=== PATIENT | male | born 1955 | race Caucasian/White ===

== ENCOUNTER 2016-06-26 15:16 | Emergency (ER) | payer OTHER ==
--- NOTE | 2016-06-26 15:51 | DIAGNOSTIC IMAGING REPORT ---
PROCEDURE: XR CHEST 1 VIEW INDICATION: CHEST PAIN TECHNIQUE: Portable AP view 03:45 p.m. COMPARISON: None. FINDINGS: Lungs are clear. Heart and mediastinum are normal. Thorax is normal. IMPRESSION: 1. Negative chest.
--- NOTE | 2016-06-26 17:57 | DIAGNOSTIC IMAGING REPORT ---
PROCEDURE: CTA THORAX WITH CONTRAST INDICATION: Left-sided chest pain x 1 week and shortness of breath. TECHNIQUE: 124 ml of Isovue 370 was injected intravenously and axial images were obtained of the entire thorax with 3D sagittal and coronal MIP reconstructions. 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 No dissection or aneurysm. There is also a focal rounded areas calcific atherosclerosis of the proximal right subclavian artery also resulting high-grade stenosis. Coronary calcific atherosclerosis. There are no pulmonary emboli. Lungs are clear. There is bronchial wall thickening. No adenopathy or effusion. Normal heart size. No pericardial effusion. Hepatic steatosis. No suspicious osseous lesions. IMPRESSION: 1. No aortic dissection or aneurysm 2. 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 High-grade stenosis of the proximal right subclavian artery 4. Bronchitis 5. Hepatic steatosis 6. Results discussed with Dr. Mercado
--- NOTE | 2016-06-26 22:31 | ED CLINICAL REPORT ---
Clinical Report - Physicians/Mid Levels [facility] [address] [place] [address] 06/26/2016 15:18 Patient: KONSTANTIN COREA Time Seen: 15:40 Jun 26 2016. Arrived- By private vehicle. Historian- patient. HISTORY OF PRESENT ILLNESS Chief Complaint: CHEST PAIN. At its maximum, severity described as moderate. When seen in the E.D., severity described as moderate. Modifying factors. Not worsened by anything. Not relieved by anything. It is described as pressure and it is described as located in the left chest area and left shoulder and arm. This started about 1 weeks and is still present. Onset during light activity. The patient has had difficulty breathing and nausea. Similar symptoms previously: None. Recent medical care: The patient was seen recently at another facility in the office. REVIEW OF SYSTEMS No fever, chills, cough, pedal edema or calf pain. No fainting episodes, sore throat, abdominal pain, black stools or difficulty with urination. No skin rash, enlarged lymph nodes or joint pain. All systems otherwise negative, except as recorded above. PAST HISTORY Hypertension. ( liver disease,). Medications: Hctz 26 mg daily. Lisinopril 20 mg daily. Lctulose 10/15 45 ml tid. Tiamine 100 mg daily. Prcocet 10/325 q6h prn. Methadone 40 mg daily. Allergies: No Known Drug Allergy. SOCIAL HISTORY Heavy tobacco smoker- more than 2 packs per day. Regular alcohol use; consumes beer. No drug use. ADDITIONAL NOTES The nursing notes have been reviewed. PHYSICAL EXAM Vital Signs: 06/26/2016 15:25 BP: 138/91. Temp: 99.2 F. Appearance: Alert. No acute distress. Anxious. Eyes: Eyes normal inspection. ENT: Pharynx normal. Neck: Normal inspection. CVS: Normal heart rate and rhythm. Diminished right radial pulse and right and left femoral pulse. Absent left radial pulse. Heart sounds normal. No cardiac murmur. (Bruit , left chest over subclavian.). Respiratory: No respiratory distress. Breath sounds normal. Chest nontender. Abdomen: Soft and nontender. Back: Normal external inspection. No CVA tenderness. Skin: Skin warm. Normal skin color. No rash. Extremities: Extremities exhibit normal ROM. No lower extremity edema. Neuro: Oriented X 3. No motor deficit. No sensory deficit. Reflexes normal. LABS, X-RAYS, AND EKG EKG: Normal sinus rhythm. Normal P waves. Normal VINNIE. Normal QRS complex. Wide QRS- intraventricular conduction delay. Left axis deviation. Non-specific ST segment / T wave abnormalities. Prior EKG unavailable. The study has been interpreted contemporaneously. The study has been independently viewed by me. The EKG appears to be a good tracing. EKG #2: Normal sinus rhythm. Normal P waves. Normal VINNIE. Normal QRS complex. Left axis deviation. Non-specific ST segment / T wave abnormalities. EKG unchanged when compared with prior EKG. The study has been interpreted contemporaneously. The study has been independently viewed by me. The EKG appears to be a good tracing. Chest CT: Lungs normal. Mediastinum normal. (No dissection. Very severe ASVD aortic arch. Very focal, annular but greater than 80%. Right subclavian artery : High grade stenosis.). Chest CT performed with contrast. The study was interpreted by the radiologist and discussed with the radiologist. Laboratory Tests: UA-Culture if indicated: (NIURKA: 06/26/2016 15:55) ( MsgRcvd 06/26/2016 16:51) Final results Test Result Flag Units (Reference) URINE COLOR YELLOW URINE APPEARANCE CLEAR URINE GLUCOSE NEGATIVE (NEGATIVE) URINE BILIRUBIN NEGATIVE (NEGATIVE) URINE KETONE NEGATIVE (NEGATIVE) URINE SPECIFIC GRAVITY 1.025 (1.010-1.030) URINE PH 5.5 (5.0-8.0) URINE PROTEIN NEGATIVE (NEGATIVE) URINE UROBILINOGEN 0.2 EU/dL (0.2-1.0) URINE NITRITE NEGATIVE (NEGATIVE) URINE BLOOD 3+ (NEGATIVE) URINE LEUK ESTERASE NEGATIVE (NEGATIVE) URINE RBC 1-3 rbc/hpf (0-1) URINE WBC NONE SEEN wbc/hpf (0-1) URINE EPITHELIAL CELLS 1-3 EPI/hpf (0-5) URINE BACTERIA NONE SEEN (NONE SEEN) URINE COMMENT CULT NOT INDICATED URINE CULTURES ARE SET-UP BASED ON THE FOLLOWING CRITERIA:POSITIVE NITRITEPOSITIVE LEUKOCYTE ESTERASEGREATER THAN 10 WHITE BLOOD CELLSMODERATE (2+) OR GREATER BACTERIA CBC w Diff: (NIURKA: 06/26/2016 15:30) ( MsgRcvd 06/26/2016 15:52) Final results Test Result Flag Units (Reference) WHITE BLOOD COUNT 6.2 K/uL (4.5-11.5) RED BLOOD COUNT 3.79 L M/uL (4.50-5.90) HEMOGLOBIN 12.2 L gm/dL (13.5-17.5) HEMATOCRIT 35.8 L % (41.0-53.0) MEAN CELL VOLUME 95 fL (80-100) MEAN CORPUSCULAR HGB 32 pg (26-34) MEAN CORPUSCULAR HGB CONC 34 g/dL (31-37) RED CELL DISTRIBUTION WIDTH 13.9 % (11.6-14.8) PLATELET COUNT 148 L K/uL (150-400) NEUTROPHIL % 57.3 % (50-75) LYMPH % 26.4 % (25-40) MONO % 12.3 % (3-14) EOSINOPHIL % 3.2 % (0-4) BASOPHIL % 0.8 % (0-2) CHEM 13 PANEL: (NIURKA: 06/26/2016 15:30) ( MsgRcvd 06/26/2016 16:45) Final results Test Result Flag Units (Reference) GLUCOSE 128 H mg/dL (70-110) BUN 16 mg/dL (7-18) CREATININE 1.0 mg/dL (0.6-1.3) Estimated GFR >60 mL/min Estimated GFR- >60 mL/min Note: Persistent reduction over 3 months in eGFR<60 mL/min/1.73 m2 defines CKD. Patients with eGFR values>=60 mL/min/1.73 m2 may also have CKD if evidence ofpersistent proteinuria. Additional information may be foundat [email or web address].org. SODIUM 138 mmol/L (136-145) POTASSIUM 4.3 mmol/L (3.5-5.1) CHLORIDE 101 mmol/L (98-107) CARBON DIOXIDE 26 mmol/L (21-32) CALCIUM 8.2 L mg/dL (8.5-10.1) TOTAL PROTEIN 7.7 g/dL (6.4-8.2) ALBUMIN 3.5 g/dL (3.3-5.0) BILIRUBIN, TOTAL 0.8 mg/dL (0.0-1.0) ALKALINE PHOSPHATASE 76 U/L (46-116) AST (SGOT) 62 H U/L (15-37) ALT (SGPT) 55 U/L (12-78) MAGNESIUM 1.9 mg/dL (1.8-2.4) CPK 269 H U/L (24-260) TROPONIN I 0.06 ng/mL (0.00-1.5) TROPONIN REFERENCE RANGE:<0.1 NEGATIVE0.1-1.5 INDETERMINANT>1.5 POSITIVE CK-MB 3.4 H ng/mL (0.5-3.2) %CKMB 1.3 % (0.0-4.0) . PROGRESS AND PROCEDURES Course of Care: Called [facility] [place] discuss disposition of patient . The patient requests [facility]. Discussed with Dr Tho Cesar cardiothoracic surgeon and he will call cardiology as the patient will need to r/o ACS with the CP before procedure for aorta. Pt a complicated vascular case. Will discuss transfer to for r/o ACS and evaluate vascular problems. The patient is a 60 yo male who's care I have taken over at the change of shift. The patient was to be dispositioned to [facility] CT surgery for evaluation of sever aortic stenosis and ACS evaluation. Per CT surgery, patient can follow up in clinic. No beds available per transfer service either for ACS evaluation. Spoke with cardiology at [facility] and patient to be evaluated there. Transfer arranged. Informed written consent obtained. Patient with negative troponins x 2 however has significant vascular plaque and likely high risk for ACS. Will transfer. Spoke to hospitalist who will accept patient as well. Discussed with family and with patient diagnosis, plan of care, and work up. All questions answered. pateint given nicotine patch, ativan, and full dose aspirin. patient requesting very strongly to go out and smoke. no further recommendations made by cardiology. Patient was transferred. Prior to patient's departure from the emergency department is noted to be resting in bed and in no acute distress. Patient stable for transport. Critical care performed (35 minutes). Time is exclusive of separately billable procedures. Time includes: direct patient care, patient reassessment, coordination of patient care, review of patient's medical records, medical consultation, family consultation regarding treatment decisions and documentation of patient care. Consult obtained. CT surgery at [facility] and cardiology at [facility]. Patient/family counseled. CLINICAL IMPRESSION chest pain, acute substernal aortic stenosis severe atherosclerosis. (Electronically signed by Keith Terrazas Dr. 06/27/2016 21:24)
--- NOTE | 2016-06-26 22:31 | ED NURSING NOTES ---
Clinical Report - Nurses [facility] [address] [place] [address] 06/26/2016 15:18 Patient: KONSTANTIN COREA TRIAGE Triage time 15:25. Chief Complaint: CHEST PAIN. --15:27 Marlene Longoria R.N. 15:25 06/26/16. BP: 138/91 (regular adult cuff) taken on the left arm, while lying. Temp: 99.2 F. --15:27 Marlene Longoria R.N. 15:29 06/26/16. BP: 163/73 taken on the right arm, while lying. HR: 73. RR: 20. O2 saturation: 95%. Pain level now: 7/10. Additional comments: chest pain . --15:31 Marlene Longoria R.N. Weight: 100.6 kg stated. Height/Length: 71 inches Per Patient. BMI: 30.9. --15:29 Marlene Longoria R.N. Medications Methadone 40 mg daily. --15:30 Marlene Longoria R.N. Prcocet 10/325 q6h prn. --15:30 Marlene Longoria R.N. Tiamine 100 mg daily. --15:30 Marlene Longoria R.N. Lctulose 10/15 45 ml tid. --15:31 Marlene Longoria R.N. Lisinopril 20 mg daily. --15:31 Marlene Longoria R.N. Hctz 26 mg daily. --15:31 Marlene Longoria R.N. Allergies No Known Drug Allergy. --15:30 Marlene Longoria R.N. History Onset. (7 days). ( left arm numbness). --15:27 Marlene Longoria R.N. ( Pt sent from clinic, CP x 1 week, unequal BPs, left arm numbness). He has had difficulty breathing and nausea. Reports experiencing sweating episodes. PAST MEDICAL HX: Hypertension. ( liver disease,). SURGERY HX: ( knee, shoulder). SOCIAL HX: Heavy tobacco smoker- more than 2 packs per day. Occasional alcohol use; consumes three beers a week. No infectious disease exposure. --15:31 Marlene Longoria R.N. PAST MEDICAL HX: ( ETOH liver disease). --15:32 Marlene Longoria R.N. PROBLEMS: Chronic pain . Hypertension. Edema of lower extremity. --15:27 Marlene Longoria R.N. NURSING PROGRESS NOTES 15:33 06/26/2016 Site #1 started via IV in the left antecubital space with an 18g angiocath. Blood drawn: rainbow set. Labeled in the presence of the patient. --15:33 Marlene Longoria R.N. 15:33 06/26/2016 Site #2 started via IV in the right antecubital space with an 20g angiocath. Blood drawn. Saline lock flushed with 10 mL saline. --15:33 Marlene Longoria R.N. Monitoring of patient in place. EKG time: (15:32). EKG was performed by a tech. Patient gowned. Call light placed in reach. Side rails up x 2. Bed placed in lowest position. Patient waiting for evaluation. --15:33 Marlene Longoria R.N. 15:58 06/26/16. BP: 135/91 taken on the left arm. HR: 79. O2 saturation: 93%. --15:59 Meghana Rm R.N. Patient ID band checked for patient name and birthdate: patient confirmed. Clean catch urine collected with return of thais-colored clear urine; sample sent to lab for urinalysis and culture. Specimen labeled in the presence of the patient. --15:59 Meghana Rm R.N. 16:08 06/26/2016 Started bag #1 1000 mL IV Fluids IV NS (Saline); at 150 mL/hr over 4 hour(s) via site #1 via IV pump. Allergies verified and confirmed 5 rights. IV patency established. IV site checked: no pain, redness, or swelling. IV flushed thoroughly pre- and post-medication administration. --16:08 Meghana Rm R.N. The patient is calm and resting quietly. --17:06 Meghana Rm R.N. 17:01 06/26/16. BP: 100/68. HR: 69. RR: 13. O2 saturation: 93%. Pain level now: . --17:06 Meghana Rm R.N. ( pt put on 2 liters O2 due to sats running 88%). --17:12 Meghana Rm R.N. 18:18 06/26/16. BP: 113/86. HR: 71. RR: 12. O2 saturation: 91%. Pain level now: 09/25. --18:20 Meghana Rm R.N. Reassessment after fluids administered. Overall patient status is the same- he states feels the same. CVS: The patient reports chest pain. --18:20 Meghana Rm R.N. EKG time: (18:51). EKG was performed by jhonathan gomez and shown to the ED physician. --19:10 [facility] Patient ID band checked for patient name and birthdate. Blood samples drawn by nurse ; labeled in presence of the patient and sent to lab: [facility]. Initial blood discarded. Line flushed with 10 mL normal saline post blood draw (troponin). --20:55 Meghana Rm R.N. Telemetry strip posted to chart. --21:00 Rachna, Thais, ER Tech1 21:04 06/26/2016 Methadone PO 10 mg given. Allergies verified and confirmed 5 rights. --21:04 Meghana Rm R.N. 21:06 06/26/16. BP: 155/107. HR: 95. RR: 19. O2 saturation: 90%. Pain level now: 09/25. --21:08 Meghana Rm R.N. 21:46 06/26/16. BP: 92/57 taken on the left arm. HR: 75. RR: 13. O2 saturation: 92%. Pain level now: 08/25. --21:49 Meghana Rm R.N. 21:49 06/26/16. BP: 135/62 taken on the right arm. --21:51 Meghana Rm R.N. 22:37 06/26/2016 Aspirin PO Tablets 325 mg given. Allergies verified and confirmed 5 rights. --22:37 Meghana Rm R.N. 22:37 06/26/2016 Ativan (LORazepam) IVP 1 mg given over 2 minute(s) via site #1. Allergies verified, confirmed 5 rights and sedative warning given to the patient. IV patency established. IV site checked: no pain, redness, or swelling. IV flushed thoroughly pre- and post-medication administration. IVP given by RN. --22:38 Meghana Rm R.N. 22:38 06/26/2016 NICOTINE Topical Patch/Pad 21 mg. Applied to the left upper arm. Allergies verified and confirmed 5 rights. --22:38 Meghana Rm R.N. Reassessment after medication administered. He is calm and resting quietly. Overall patient status is the same- he states feels better. --22:40 Meghana Rm R.N. DISPOSITION / DISCHARGE Report was given to a nurse via a phone call. Report included patient's care, treatment, medications, reviewed medication reconcilliation, and condition (including any recent changes or anticipated changes). All questions were answered. Report was acknowledged. (teressa maldonado RN). --22:36 Meghana Rm R.N. 22:39 06/26/16. BP: 147/63 taken on the right arm. HR: 82. RR: 14. O2 saturation: 91%. Pain level now: 08/25. --22:40 Meghana Rm R.N. Departure time: :Jun 26 2016. Transferred to [facility]. Summary of care provided to EMS and transfer facility via paper (:Jun 26 2016). Transported via stretcher by EMS. Patient's personal items; items were given to the patient and transported with the patient. --23:13 Meghana Rm R.N. Locked/Released at 06/26/2016 23:14 by Meghana Rm R.N.
--- NOTE | 2016-06-26 22:32 | ED ORDER SUMMARY ---
..... Patient: KONSTANTIN COREA OrderSheet [facility] VisitID: [id number] [place] [address] 60y, M Registration Date/Time: 06/26/2016 ORDER SHEET Weight: 100.6 kg (stated) Allergies: No Known Drug Allergy GENERAL ORDERS: Chest 1V Urgent (15:37 06/26/2016 KKnebel R.N. per protocol) (15:39 KKnebel R.N.) Debate Director (Continuous) (15:38 06/26/2016 KKnebel R.N. per protocol) (15:38 KKnebel R.N.) UA-Culture if indicated Urgent (15:38 06/26/2016 KKnebel R.N. per protocol) (Ack 15:40 OSnell) (15:58 KKnebel R.N.) Cardiac Panel Stat (15:38 06/26/2016 KKnebel R.N. per protocol) (15:39 KKnebel R.N.) Pulse oximeter (15:38 06/26/2016 KKnebel R.N. per protocol) (15:38 KKnebel R.N.) EKG - ER Stat (15:38 06/26/2016 KKnebel R.N. per protocol) (15:38 KKnebel R.N.) NPO (15:38 06/26/2016 KKnebel R.N. per protocol) (15:38 KKnebel R.N.) Old Records (15:38 06/26/2016 KKnebel R.N. per protocol) (Ack 15:40 OSnell) (19:18 HSoule) CTA Thorax w Cont (No) (pending) Urgent (15:42 06/26/2016 Isa SHAIKH) (Ack 15:49 OSnell) (17:00 KKnebel R.N.) EKG - ER Stat (18:30 06/26/2016 Isa SHAIKH) (Ack 18:32 OSnell) (19:18 HSoule) Troponin-I Urgent (20:35 06/26/2016 Isa SHAIKH) (Ack 20:40 Sobeida) (20:54 KKnebel R.N.) MEDICATION ORDERS: - (Methadone 10 mg po) (20:38 06/26/2016 Isa SHAIKH) (21:04 JIMnebel R.N.) Aspirin PO 325 mg (Do not crush or chew, NOW) (22:18 06/26/2016 Madeline Emanuel) (22:37 JIMnechuy R.N.) Nicotine Topical 21 mg (NOW) (22:18 06/26/2016 Madeline Emanuel) (22:38 JIMnebel R.N.) IV FLUIDS: IV Saline Lock (15:38 06/26/2016 JIMnebel R.N. per protocol) (15:39 JIMnebel R.N.) (Cancelled: Duplicate Order15:43 Isa SHAIKH) IV Saline Lock (15:41 06/26/2016 Delgado R.N. per protocol) (15:41 JIMnechuy R.N.) IV NS : initial bolus none -, then 150 mL/hr for 4h (NOW); Routine (15:43 06/26/2016 Isa SHAIKH) (16:08 KKnebel R.N.) Ativan IV 1 mg (HIGH ALERT MEDICATION, NOW) (22:18 06/26/2016 Madeline Emanuel) (22:38 JIMnechuy R.N.) ORDER SHEET NOTES: [Electronically signed by Meghana Rm R.N. (23:14 06/26/2016)] [Electronically signed by Keith Terrazas Dr. (21:24 06/27/2016)] [Electronically locked/signed by Meghana Rm R.N. (23:14 06/26/2016)]
--- NOTE | 2016-06-26 22:32 | ED ORDER SUMMARY ---
..... Patient: KONSTANTIN COREA OrderSheet [facility] VisitID: [id number] [place] [address] 60y, M Registration Date/Time: 06/26/2016 ORDER SHEET Weight: 100.6 kg (stated) Allergies: No Known Drug Allergy GENERAL ORDERS: Chest 1V Urgent (15:37 06/26/2016 KKnebel R.N. per protocol) (15:39 KKnebel R.N.) Pattern Designer (Continuous) (15:38 06/26/2016 KKnebel R.N. per protocol) (15:38 KKnebel R.N.) UA-Culture if indicated Urgent (15:38 06/26/2016 KKnebel R.N. per protocol) (Ack 15:40 OSnell) (15:58 KKnebel R.N.) Cardiac Panel Stat (15:38 06/26/2016 KKnebel R.N. per protocol) (15:39 KKnebel R.N.) Pulse oximeter (15:38 06/26/2016 KKnebel R.N. per protocol) (15:38 KKnebel R.N.) EKG - ER Stat (15:38 06/26/2016 KKnebel R.N. per protocol) (15:38 KKnebel R.N.) NPO (15:38 06/26/2016 KKnebel R.N. per protocol) (15:38 KKnebel R.N.) Old Records (15:38 06/26/2016 KKnebel R.N. per protocol) (Ack 15:40 OSnell) (19:18 HSoule) CTA Thorax w Cont (No) (pending) Urgent (15:42 06/26/2016 Isa SHAIKH) (Ack 15:49 OSnell) (17:00 KKnebel R.N.) EKG - ER Stat (18:30 06/26/2016 Isa SHAIKH) (Ack 18:32 OSnell) (19:18 HSoule) Troponin-I Urgent (20:35 06/26/2016 Isa SHAIKH) (Ack 20:40 Sobeida) (20:54 KKnebel R.N.) MEDICATION ORDERS: - (Methadone 10 mg po) (20:38 06/26/2016 Isa SHAIKH) (21:04 JIMnebel R.N.) Aspirin PO 325 mg (Do not crush or chew, NOW) (22:18 06/26/2016 Madeline Emanuel) (22:37 JIMnechuy R.N.) Nicotine Topical 21 mg (NOW) (22:18 06/26/2016 Madeline Emanuel) (22:38 JIMnebel R.N.) IV FLUIDS: IV Saline Lock (15:38 06/26/2016 JIMnebel R.N. per protocol) (15:39 JIMnebel R.N.) (Cancelled: Duplicate Order15:43 Isa SHAIKH) IV Saline Lock (15:41 06/26/2016 Delgado R.N. per protocol) (15:41 JIMnechuy R.N.) IV NS : initial bolus none -, then 150 mL/hr for 4h (NOW); Routine (15:43 06/26/2016 Isa SHAIKH) (16:08 KKnebel R.N.) Ativan IV 1 mg (HIGH ALERT MEDICATION, NOW) (22:18 06/26/2016 Madeline Emanuel) (22:38 JIMnechuy R.N.) ORDER SHEET NOTES: [Electronically signed by Meghana Rm R.N. (23:14 06/26/2016)] [Electronically signed by Keith Terrazas Dr. (21:24 06/27/2016)] [Electronically locked/signed by Meghana Rm R.N. (23:14 06/26/2016)]
--- NOTE | 2016-06-27 21:25 | ED MAR SUMMARY ---
..... Medication Administration Record [facility] [address] [place] [address] Patient: KONSTANTIN COREA Visit ID: [id number] 60y, M Weight: 100.6 kg Height/Length: 71 in BMI: 30.9 ALLERGIES: No Known Drug Allergy Start 16:08 06/26/2016 Meghana Rm R.N. Medication Administered: IV NS (SALINE), Dose: IV Fluids over 4 hour(s), Rate: 150 mL/hr, Dispensed: 1000 mL bag, Site: #1 left AC. Medication Ordered: IV NS : initial bolus none -, then 150 mL/hr for 4h (NOW); Routine. Given 21:04 06/26/2016 Meghana Rm R.N. Medication Administered: METHADONE [PO], Dose: 10 mg PO. Medication Ordered: - (Methadone 10 mg po). Given 22:37 06/26/2016 Meghana Rm R.N. Medication Administered: ASPIRIN [PO], Dose: 325 mg Tablets PO. Medication Ordered: Aspirin PO 325 mg (Do not crush or chew, NOW). Given 22:37 06/26/2016 Meghana Rm R.N. Medication Administered: ATIVAN [IVP] (LORAZEPAM), Dose: 1 mg IVP over 2 minute(s), Site: #1 left AC. Medication Ordered: Ativan IV 1 mg (HIGH ALERT MEDICATION, NOW). Given 22:38 06/26/2016 Meghana Rm R.N. Medication Administered: NICOTINE [TOPICAL], Dose: 21 mg Patch/Pad Topical. Medication Ordered: Nicotine Topical 21 mg (NOW).
--- NOTE | 2016-06-27 21:25 | ED MED RECONCILIATION SUMMARY ---
Patient: KONSTANTIN COREA Medication Reconciliation Report [facility] VisitID: [id number] [address] [place] [address] 60y, M Registration Date/Time: 06/26/2016 Weight: 100.6 kg Height/Length: 71 in. BMI: 30.9 ALLERGIES: No Known Drug Allergy The patient's Home Medications are listed below: THE FOLLOWING MEDICATIONS NEED TO BE RECONCILED: Hctz 26 mg daily Lctulose 10/15 45 ml tid Lisinopril 20 mg daily Methadone 40 mg daily Prcocet 10/325 q6h prn Tiamine 100 mg daily The source(s) of the original Home Medication information: Not obtained. The following Medications were given to the patient in the Emergency Department: IV NS IV Fluids bolus 0, then 150 mL/hr, administered: 06/26/2016 4:08:00 PM Methadone [PO] PO 10 mg, administered: 06/26/2016 9:04:00 PM Aspirin [PO] PO 325 mg, administered: 06/26/2016 10:37:00 PM Ativan [IVP] IVP 1 mg, administered: 06/26/2016 10:37:00 PM NICOTINE [TOPICAL] Topical 21 mg, administered: 06/26/2016 10:38:00 PM The following Medications were prescribed to the patient: None.
--- NOTE | 2016-06-27 21:25 | ED DISCHARGE INSTRUCTIONS ---
Patient: KONSTANTIN COREA General Instructions [facility] VisitID: [id number] [address] [place] [address] 60y, M Registration Date/Time: 06/26/2016 chest pain, acute substernal aortic stenosis severe atherosclerosis. (Electronically signed by Keith Terrazas Dr. 06/27/2016 21:24)
--- NOTE | 2016-06-27 21:25 | ED DISCHARGE INSTRUCTIONS ---
Patient: KONSTANTIN COREA General Instructions [facility] VisitID: [id number] [address] [place] [address] 60y, M Registration Date/Time: 06/26/2016 chest pain, acute substernal aortic stenosis severe atherosclerosis. (Electronically signed by Keith Terrazas Dr. 06/27/2016 21:24)
--- NOTE | 2016-06-27 21:25 | ED MAR SUMMARY ---
..... Medication Administration Record [facility] [address] [place] [address] Patient: KONSTANTIN COREA Visit ID: [id number] 60y, M Weight: 100.6 kg Height/Length: 71 in BMI: 30.9 ALLERGIES: No Known Drug Allergy Start 16:08 06/26/2016 Meghana Rm R.N. Medication Administered: IV NS (SALINE), Dose: IV Fluids over 4 hour(s), Rate: 150 mL/hr, Dispensed: 1000 mL bag, Site: #1 left AC. Medication Ordered: IV NS : initial bolus none -, then 150 mL/hr for 4h (NOW); Routine. Given 21:04 06/26/2016 Meghana Rm R.N. Medication Administered: METHADONE [PO], Dose: 10 mg PO. Medication Ordered: - (Methadone 10 mg po). Given 22:37 06/26/2016 Meghana Rm R.N. Medication Administered: ASPIRIN [PO], Dose: 325 mg Tablets PO. Medication Ordered: Aspirin PO 325 mg (Do not crush or chew, NOW). Given 22:37 06/26/2016 Meghana Rm R.N. Medication Administered: ATIVAN [IVP] (LORAZEPAM), Dose: 1 mg IVP over 2 minute(s), Site: #1 left AC. Medication Ordered: Ativan IV 1 mg (HIGH ALERT MEDICATION, NOW). Given 22:38 06/26/2016 Meghana Rm R.N. Medication Administered: NICOTINE [TOPICAL], Dose: 21 mg Patch/Pad Topical. Medication Ordered: Nicotine Topical 21 mg (NOW).
--- NOTE | 2016-06-27 21:25 | ED MED RECONCILIATION SUMMARY ---
Patient: KONSTANTIN COREA Medication Reconciliation Report [facility] VisitID: [id number] [address] [place] [address] 60y, M Registration Date/Time: 06/26/2016 Weight: 100.6 kg Height/Length: 71 in. BMI: 30.9 ALLERGIES: No Known Drug Allergy The patient's Home Medications are listed below: THE FOLLOWING MEDICATIONS NEED TO BE RECONCILED: Hctz 26 mg daily Lctulose 10/15 45 ml tid Lisinopril 20 mg daily Methadone 40 mg daily Prcocet 10/325 q6h prn Tiamine 100 mg daily The source(s) of the original Home Medication information: Not obtained. The following Medications were given to the patient in the Emergency Department: IV NS IV Fluids bolus 0, then 150 mL/hr, administered: 06/26/2016 4:08:00 PM Methadone [PO] PO 10 mg, administered: 06/26/2016 9:04:00 PM Aspirin [PO] PO 325 mg, administered: 06/26/2016 10:37:00 PM Ativan [IVP] IVP 1 mg, administered: 06/26/2016 10:37:00 PM NICOTINE [TOPICAL] Topical 21 mg, administered: 06/26/2016 10:38:00 PM The following Medications were prescribed to the patient: None.
== END 2016-06-26 23:00 | disposition short-term general hospital (02) ==
LOC: ED SRH 15:16
DX: I35.0 Nonrheumatic aortic (valve) stenosis (principal); I70.90 Unspecified atherosclerosis; R07.89 Other chest pain; I10 Essential (primary) hypertension; Z79.891 Long term (current) use of opiate analgesic; Z79.899 Other long term (current) drug therapy; F17.210 Nicotine dependence, cigarettes, uncomplicated
CPT/HCPCS: 90004; 90100; 90616; 90617; 92610; 92720; 95059